=== PATIENT | female | born 1955 | race Caucasian/White ===

== ENCOUNTER → 2016-11-27 | Outpatient (CLI) | payer BC | LOC: MC.RAD 16:36 | DX: Z12.31 Encounter for screening mammogram for malignant neoplasm of breast (principal); Z90.12 Acquired absence of left breast and nipple | CPT/HCPCS: G0202 ==

== ENCOUNTER → 2019-01-20 | Outpatient (CLI) | payer BC | LOC: MC.RAD 16:24 | DX: Z12.31 Encounter for screening mammogram for malignant neoplasm of breast (principal); Z85.3 Personal history of malignant neoplasm of breast ==

== ENCOUNTER 2019-11-15 15:30 | Outpatient (RCR) | payer OTHER | END 2019-11-17 10:32 | disposition home or self-care (01) | LOC: WSOH 15:30 | DX: S80.01XA Contusion of right knee, initial encounter (principal); S20.211A Contusion of right front wall of thorax, initial encounter; S80.811A Abrasion, right lower leg, initial encounter; I10 Essential (primary) hypertension; G89.29 Other chronic pain; Z90.12 Acquired absence of left breast and nipple; Z98.51 Tubal ligation status; Z98.890 Other specified postprocedural states; Z92.21 Personal history of antineoplastic chemotherapy; Z92.3 Personal history of irradiation; Z87.828 Personal history of other (healed) physical injury and trauma; Y99.0 Civilian activity done for income or pay ==

== ENCOUNTER → 2020-01-24 | Outpatient (CLI) | payer BC | LOC: MC.RAD 16:15 | DX: Z12.31 Encounter for screening mammogram for malignant neoplasm of breast (principal); Z85.3 Personal history of malignant neoplasm of breast ==

== ENCOUNTER → 2021-01-29 | Outpatient (CLI) | payer BC | LOC: MC.RAD 09:24 | DX: Z12.31 Encounter for screening mammogram for malignant neoplasm of breast (principal); Z90.12 Acquired absence of left breast and nipple ==